=== PATIENT | female | born 1995 | race Two or more races ===

== ENCOUNTER 2023-03-15 17:34 | Emergency (ER) | payer OTHER ==
[~2023-03-15] VITALS: Ht 154.9 cm; Wt 67.1 kg
[2023-03-15] MEDS: IV NS 0.9% 1,000 ML BAG IV ONE (18:24)
[2023-03-15] MEDS: ONDANSETRON HCL/PF 4 MG/2 ML VIAL IVP ONE (18:24)
[2023-03-15] MEDS: MORPHINE SULFATE INJ 2 MG/ML DISP.SYRIN IV ONE (18:25)
[2023-03-15 18:43] LABS: BASOPHILS % (AUTO) 0.1 % (0.0-2.0); EOSINOPHILS % (AUTO) 0.1 % (0.0-6.0); HEMATOCRIT 43 % (33-45); HEMOGLOBIN 14.3 g/dL (11.5-14.8); LYMPHOCYTES # (AUTO) 0.8 K/uL (0.8-4.8); LYMPHOCYTES % (AUTO) 10.6 % (20.0-44.0); MEAN CORPUSCULAR HEMOGLOBIN 28 PG (26.0-33.0); MEAN CORPUSCULAR HGB CONC 33 g/dl (31.0-36.0); MEAN CORPUSCULAR VOLUME 83 fL (82-100); MONOCYTES # (AUTO) 0.3 K/uL (0.1-1.30); MONOCYTES % (AUTO) 4.8 % (2.0-12.0); NEUTROPHILS % (AUTO) 84.4 % (43.0-81.0); PLATELET COUNT (AUTO) 267 K/uL (150-450); RED BLOOD CELL COUNT(AUTO) 5.18 MIL/uL (4.0-5.2); RED CELL DISTRIBUTION WIDTH 12.7 % (11.5-15.0); WHITE BLOOD COUNT (AUTO) 7.1 K/uL (4.3-11.0)
[2023-03-15 18:53] LABS: CALCIUM, SERUM 10.4 mg/dL (8.5-10.1); CREATININE 0.8 mg/dL (0.6-1.3); POTASSIUM 3.7 mmol/L (3.5-5.1)
[2023-03-15 18:59] LABS: ALBUMIN 4.4 g/dL (3.4-5.0); BILIRUBIN,DIRECT 0.1 mg/dL (0.0-0.2); BILIRUBIN,TOTAL 0.4 mg/dL (0.2-1.0); TOTAL PROTEIN, SERUM 8.5 g/dL (6.4-8.2)
[2023-03-15] MEDS ORDERED: MAG HYDROX/AL HYDROX/SIMETH 30 ML UDC ONE (19:42)
[2023-03-15] MEDS: MAG HYDROX/AL HYDROX/SIMETH 30 ML UDC PO ONE (20:04)
[2023-03-15] MEDS ORDERED: PANT40TA49 PO ×2 (20:31→20:50)
[2023-03-15] MEDS ORDERED: DOXY100C2 PO ×2 (20:31→20:50)
[2023-03-15 21:09] VITALS: BP 131/99; TEMP 98; O2SAT 97
== END 2023-03-15 21:09 | disposition home or self-care (01) ==
LOC: ER 17:39
DX: K21.9 Gastro-esophageal reflux disease without esophagitis (principal); J18.9 Pneumonia, unspecified organism; R11.0 Nausea
CPT/HCPCS: 99285; 74176; 96374; 96361; 85025; 80048; 83690; 80076; 36415; J2405; J7030

== ENCOUNTER 2023-03-26 13:07 | Emergency (ER) | payer OTHER ==
[~2023-03-26] VITALS: Ht 157.5 cm; Wt 63.5 kg
[~2023-03-26 13:07] MED LIST: DOXY100C2 PO; PANT40TA49 PO
[2023-03-26 16:45] VITALS: BP 131/71; TEMP 98.1; O2SAT 100
== END 2023-03-26 16:47 | disposition home or self-care (01) ==
LOC: ER 13:09
DX: J20.9 Acute bronchitis, unspecified (principal)
CPT/HCPCS: 71045-TC